=== PATIENT | male | born 1955 | race Caucasian/White ===

== ENCOUNTER 2024-01-25 15:54 | Emergency (ER) | payer BC ==
[~2024-01-25] VITALS: Ht 167.6 cm; Wt 73.6 kg
[~2024-01-25 15:54] MED LIST: CARDI-OMEGA1000 MG PO; CHOLESTEROL PILL; PSORIASIS MED
[2024-01-25] MEDS ORDERED: CIPRO 500MG TA500 MG PO (16:02)
[2024-01-25] MEDS ORDERED: PRAVASTATIN SOD40 MG PO (16:02)
[2024-01-25] MEDS ORDERED: BISOPROLOL FUMAR5 GM MC (16:03)
[2024-01-25] MEDS ORDERED: EZETIMIBE10 M1 PO (16:03)
[2024-01-25] MEDS ORDERED: PANTOPRAZOLE SO40 MG PO (16:04)
[2024-01-25] MEDS ORDERED: ZYLOPRIM 100MG100 MG PO (16:04)
[2024-01-25] MEDS ORDERED: LETROZOLE2.5 MG PO (16:04)
[2024-01-25] MEDS ORDERED: AVALIDE 12.5 MG1 TAB PO (16:05)
[2024-01-25 16:46] LABS: URINE APPEARANCE CLOUDY (CLEAR); URINE BILIRUBIN NEGATIVE (NEGATIVE); URINE BLOOD 2+ (NEGATIVE); URINE COLOR YELLOW (YELLOW); URINE GLUCOSE NEGATIVE (NEGATIVE); URINE KETONE NEGATIVE (NEGATIVE); URINE LEUKOCYTE ESTERASE 3+ (NEGATIVE); URINE NITRATE POSITIVE (NEGATIVE); URINE PROTEIN(semi-quant) 2+ (NEGATIVE); URINE WBC >50 /hpf (0-3)
[2024-01-25] MEDS ORDERED: CEFUROXIME AXE250 MG PO (16:57)
[2024-01-25] MEDS ORDERED: Cefuroxime 250 MG TAB PO ONE (17:00)
[2024-01-25 17:09] VITALS: BP 105/68
== END 2024-01-25 17:05 | disposition home or self-care (01) ==
LOC: ED 15:54
PROVIDERS: Physician Assistant
DX: N39.0 Urinary tract infection, site not specified (principal)
CPT/HCPCS: J0696